=== PATIENT | male | born 1940 | race Caucasian/White ===

== ENCOUNTER → 2016-06-09 | Outpatient (CLI) | payer MEDICARE ==
[~2016-06-09] MED LIST: ALLOPURINOL300 MG PO; AMARYL PO; CETIRIZINE HCL10 MG PO; CINNAMON ALPHA1 EACH PO; COUMADIN7.5 MG PO; CYANOCOBALAM1000 MCG PO; GABAPENTIN300 M2 PO; GABAPENTIN400 M2 PO; HYDROCODON-ACE1 EAC9 PO; LIPITOR PO; LISINOPRIL5 MG PO; LOSARTAN POTASS50 MG PO; METFORMIN PO; NOVOLOG100 U/M2; NOVOLOG100 U/M2 SUBQ; TOUJEO SOL300 UNIT/1; TOUJEO SOL300 UNIT/1 SUBQ; TYLENOL325 M1 PO; VOLTAREN75 MG PO; [UNRECOGNIZED DRUG - OTHER] PO
--- NOTE | ~2016-06-09 | CO ---
Unit #: [id number] #: [id number] Patient: NOELLE GRAY [id number] [address] [address] [id number] MR#: [id number] NAME: NOELLE GRAY ROOM: Age: 75 Sex: M Admission Date: 06/09/2016 : 1940 Attending Physician: Rolando Chu M.D. Primary Care Physician: Winter White M.D. Consultation Date: 06/09/2016 CONSULTATION REPORT REASON FOR CONSULTATION Preoperative medical evaluation prior to right total knee arthroplasty scheduled by Dr. Chu for 06/23/2016. HISTORY OF PRESENT ILLNESS The patient is a 75-year-old male, who presents to preprocedural screening for the reason as indicated above. He has no complaints today with exception of right knee pain. He denies history of myocardial infarction, congestive heart failure, CVA, TIA, kidney disease. He is a type 2 diabetic on insulin. He denies upper back, arm, neck, or jaw pain and pressure. Denies shortness of air, dyspnea on exertion, or paroxysmal nocturnal dyspnea. He does have a history of sleep apnea, but does not use CPAP. Denies lightheadedness, dizziness, presyncope, syncope, or palpitations. He has been evaluated by Dr. Chu and scheduled for the above-referenced procedure. PAST MEDICAL HISTORY 1. Osteoarthritis. 2. Type 2 diabetes mellitus, on insulin. 3. Obstructive sleep apnea, noncompliant with CPAP. 4. Gout. 5. Hypertension. 6. Aortic stenosis. 7. Hyperlipidemia. 8. B12 deficiency. 9. Allergic rhinitis. 10. Obesity, BMI 37. 11. History of back injury. 12. History of skin cancer. 13. History of bilateral lower extremity neuropathy. PAST SURGICAL HISTORY 1. Abdominal hernia repair x2. 2. Cholecystectomy. 3. Left total knee arthroplasty. 4. Colonoscopy with polyp excision. 5. Negative for malignancy per the patient report. Please note, the patient denies a personal and family history of complications to anesthesia. ALLERGIES Denies latex allergy. No known drug allergies. CURRENT MEDICATIONS Unit #: [id number] #: [id number] Patient: NOELLE GRAY Glucophage 1000 mg p.o. b.i.d., allopurinol 300 mg p.o. every morning, Lipitor 10 mg p.o. every morning, Tylenol 325 mg p.o. at bedtime, cyanocobalamin 1000 mcg p.o. at bedtime, Cetirizine HCL 10 mg p.o. daily p.r.n. allergies, Epanova daily a study drug (fish oil/[place] 3), NovoLog (insulin aspart 25 units t.i.d. and adjust sliding scale according to blood sugar), Toujeo SoloSTAR 70 units in the evening and adjust according to blood sugar, gabapentin 400 mg p.o. t.i.d., losartan potassium 50 mg p.o. daily, Amaryl 4 mg p.o. at bedtime, Cinnamon alpha-lipoic acid cap one p.o. daily. SOCIAL HISTORY The patient consumes 2 beers weekly. Denies tobacco use or illicit drug use. Remote history of 2 tobacco use. He is a and served 3 tours in [employer]. FAMILY HISTORY Per review of Dr. Chu's office note, mother had cancer. REVIEW OF SYSTEMS The patient reports chronic decreased range of motion in both shoulders. Complains of right knee pain. A 10-point review of systems is conducted and otherwise negative except as indicated under history of present illness above. PHYSICAL EXAMINATION GENERAL: A 75-year-old male, awake, alert, in no acute distress. VITAL SIGNS: Heart rate 81, respiratory rate 16, blood pressure 142/83. HEENT: Atraumatic and normocephalic. Sclerae anicteric. No discharge from eyes, ears, or nares. LYMPH: No preauricular, postauricular, tonsillar, submental, anterior, or posterior cervical supra or infraclavicular adenopathy. ENDOCRINE: No thyromegaly, thyroid nodules, or tenderness. RESPIRATORY: Clear to auscultation in all suazo bilaterally without wheezes, rhonchi, or rales. CARDIOVASCULAR: S1, S2. Regular rate and rhythm without murmur or rub. GI: Bowel sounds are positive x4. Soft, nontender, nondistended. EXTREMITIES: Bilateral lower extremities, venous stasis changes, 2+ bilateral lower extremity edema without cyanosis or clubbing. NEUROLOGIC: Alert and oriented x3. Speech clear. Follows commands. Strength 5/5 in all extremities bilaterally to flexion extension. DIAGNOSTIC STUDIES LABORATORY RESULTS: WBC 7.7, hemoglobin 13.0, hematocrit 38.5, platelet count 134,000. Sodium 140, potassium 3.9, chloride 107, CO2 of 23, glucose 87, BUN 33, creatinine 1.2, calcium 9.8. AST 25, ALT 19, alkaline phos 61, bilirubin total 0.8, total protein 7.5, albumin 4.5. PT 11.0. INR 1.0. Hemoglobin A1c 7.9. Urinalysis negative with neither microscopic nor culture indicated. Blood type A positive, antibody screen negative. IMAGING STUDIES: Two-view chest x-ray, date of study 02/06/2016, conclusion, no active cardiopulmonary disease. CARDIOVASCULAR STUDIES: 12-lead EKG, 02/10/2016, sinus rhythm with occasional PVCs, otherwise normal ECG confirmed by Dr. Guidry on 02/10/2016. Please note, the patient tells me that he had a cardiac workup since I saw him in January, which included a stress test and from Unit #: [id number] #: [id number] Patient: NOELLE GRAY his description 2D echocardiogram. However, I do not see any records in this regard on the chart, I will request those records. The patient told he has aortic stenosis and no further workup is planned at this time. IMPRESSION The patient is a 75-year-old male, who presents to preprocedural screening for; 1. Preoperative medical evaluation prior to right total knee arthroplasty scheduled by Dr. Chu for 06/23/2016. The patient's Maxwell revised cardiac risk index is equal to 1.0% and this represents the patient's perioperative risk of cardiac , fatal or nonfatal myocardial infarction, cardiopulmonary arrest, arrhythmia and/or pulmonary edema. The patient's 1% risk is due to insulin-dependent diabetes mellitus. This has been discussed with the patient in detail and he wishes to proceed with surgery as scheduled at this time. 2. Type 2 diabetes mellitus, insulin dependent. The patient will follow anesthesia guidelines for preoperative medications including insulin. We will monitor Accu-Cheks, place on sliding scale insulin protocol, and resume all home medications. Pending confirmation of adequate oral intake postoperatively. 3. Obstructive sleep apnea. The patient is not compliant with CPAP. We will place on obstructive sleep apnea protocol postoperatively. 4. Gout. Continue allopurinol. 5. Hypertension. Blood pressure is stable. Monitor blood pressure postoperatively and adjust medications accordingly. 6. History of aortic stenosis. The patient is completely asymptomatic and clinically stable at this time. I will request records for review regarding preop cardiac workup as recommended by me after I saw him for preoperative medical evaluation in 01/2016. 7. Hyperlipidemia. Continue statin, although I recommend that the Lipitor will be changed to the evening instead of the morning. 8. B12 deficiency. Continue cyanocobalamin. 9. Allergic rhinitis, stable. 10. Obesity, body mass index 37. Weight loss to recommended BMI suggested. 11. Osteoarthritis. 12. History of back injury. 13. History of skin cancer. 14. History of bilateral lower extremity neuropathy, stable on Neurontin. Thank you for allowing us to participate in the care of this patient. We will gladly follow him for postop medical management. MRSA screen and review of cardiac reports are pending at this time. Dictated by... Jacquelyn Patino A.P.R.N. for Perez Moralez/kailash TD: 06/10/2016 02:39 JOB #: [id number] Unit #: [id number] #: [id number] Patient: NOELLE GRAY CONSULTATION REPORT Page 1 of 1 X Jacquelyn Patino APRN X CONSULTATION REPORT
[2016-06-09 08:35] LABS: HEMATOCRIT 38.7 % (38.0-50.0); MEAN CELL VOLUME 87.5 FL (83-96); MEAN CORPUSCULAR HEMOGLOBIN 29.3 PG (28-34); MEAN CORPUSCULAR HGB CONC 33.5 g/dL (30-36); MEAN PLATELET VOLUME 7.3 FL (6.5-11.5); RED BLOOD COUNT 4.42 X10e (3.90-5.60); RED CELL DISTRIBUTION WIDTH 14.5 % (11.0-15.5); WHITE BLOOD COUNT 7.7 X10e3 (4.0-10.5)
[2016-06-09 08:36] LABS: URINE APPEARANCE CLEAR; URINE BILIRUBIN NEG (NEG); URINE BLOOD NEG (NEG); URINE COLOR YELLOW; URINE GLUCOSE NEG (NEG); URINE KETONE NEG (NEG); URINE LEUKOCYTE ESTERASE NEG (NEG); URINE NITRATE NEG (NEG); URINE PROTEIN NEG (NEG); URINE SPECIFIC GRAVITY 1.015 (1.003-1.035)
[2016-06-09 08:43] LABS: CULTURE INDICATED? NO
[2016-06-09 09:14] LABS: ALBUMIN SERUM 4.5 g/dL (3.5-5.0); BILIRUBIN,TOTAL 0.8 mg/dL (0.2-2.0); BUN/CREATININE RATIO 27.5; CALCIUM SERUM 9.8 mg/dL (8.4-10.2); CREATININE SERUM 1.2 mg/dL (0.6-1.4); GLOM FILT RATE Estimated 58.8 mL/min (>60); POTASSIUM 3.9 mmol/L (3.5-5.1); PROTEIN TOTAL SERUM 7.5 g/dL (6.0-8.3)
== END | disposition home or self-care (01) ==
LOC: CAMB 07:56
PROVIDERS: Orthopaedic Surgery
DX: Z01.812 Encounter for preprocedural laboratory examination (principal); M17.11 Unilateral primary osteoarthritis, right knee
CPT/HCPCS: 36415; 80053; 81003; 83036; 85027; 85610; 86850; 86900; 86901; 87070

== ENCOUNTER 2016-06-23 06:14 | Inpatient (IN) | payer MEDICARE ==
--- NOTE | ~2016-06-23 | OR ---
Unit #: [id number] #: [id number] Patient: NOELLE GRAY [id number] [address] [place], [place] [address] [id number] MR#: [id number] NAME: NOELLE GRAY ROOM: [facility] Date of Procedure: 06/23/2016 Admission Date: 06/23/2016 Surgeon: Rolando Chu M.D. : 1940 Attending Physician: Rolando Chu M.D. Primary Care Physician: Winter White M.D. OPERATIVE REPORT PREOPERATIVE DIAGNOSIS Primary localized osteoarthritis of the right knee. POSTOPERATIVE DIAGNOSIS Primary localized osteoarthritis of the right knee. PROCEDURE PERFORMED Right total knee. ASSISTANTS Noa Bowman and Raffy Contreras. ANESTHESIA Adductor canal block plus general. ESTIMATED BLOOD LOSS 100 mL. INDICATIONS FOR PROCEDURE This is a 75-year-old with severe pain in his right knee. He has had pain for months. It has gotten progressively worse. He has tried injections and anti-inflammatories with no relief of the discomfort. His x-rays showed that he has evit-vy-fobk with subchondral sclerosis and periarticular osteophytes. The pain limits his walking, standing, and other daily activities including interrupting his sleep. He is brought to the hospital today for right total knee. DESCRIPTION OF PROCEDURE The patient was brought to the holding room, given an adductor canal block. He was also given 2 g of Ancef that will be continued postop, but discontinued within 23 hours from the start time of surgery. He was then given a general anesthetic. Tourniquet placed around the right thigh. The right leg was prepped and draped in a sterile fashion. Tourniquet was inflated to 250. A straight anterior skin incision was made. The subcutaneous dissected away and a medial arthrotomy was performed. Patella was slid to the side. Osteophytes removed from the femur. The intramedullary guide was used and a 6-degree valgus cut was made on the distal femur. The femur was sized and found to be a size 3. The anterior-posterior cutting block was applied. Rotation was checked in the knee. Anterior and posterior cuts were made along with the chamfer cuts. Proximal tibial cut was made using a 0-degree cutting block. It was sized at 2.5. Any posterior condylar osteophytes were removed. The knee was Unit #: [id number] #: [id number] Patient: NOELLE GRAY injected with ropivacaine mixture and the posterior capsule and the periosteum. The patient then had the trial femur applied. The drill holes were made for lugs on the femoral component. Trial tibia was applied. This was 8 mm thick. The knee came to full extension and good stability in extension and flexion. Rotation of the tibia was marked and the external alignment guide showed appropriate alignment of the limb. The patella was grasped with 2 towel clips, measured 25 mm thick, cut smooth at 14 and a 38 patella was the appropriate size. The 3 drill holes were made. Trial patella applied and it tracked properly. We then removed all the trials. The knee was irrigated and dried while the cement was mixed. Then, all 3 components were cemented simultaneously. Once again, it was a size 3 femur, size 2.5 tibia, all poly 8 mm thick, and a 38 patella from the De[employer] P[employer] Sigma knee system. Any excess cement was removed and then the knee was irrigated and the rest of the ropivacaine mixture was injected. The tourniquet was released. Hemostasis was obtained. The wound irrigated with Betadine and bacitracin and then closed using 0 Ethibond in the arthrotomy, 0 and 2-0 Vicryl in the subcutaneous, and kelton in the skin. television production assistant, Noa Bowman was present throughout the entire case. Dictated by... Perez Rosas/kailash TD: 06/24/2016 02:39 JOB #: [id number] OPERATIVE REPORT Page 1 of 1 X Rolando Chu MD PROCEDURE OPERATIVE NOTE
--- NOTE | ~2016-06-23 | BMI ---
[facility] Nutrition Therapy DATE: 06/25/16 Patient: NOELLE GRAY Physician: ONEIL Address: [address] Room/Bed: [address] [place] [address], Zip: [place] [address] Admit Date: 06/23/16 Date of : [birth year] Height: 5 7 Weight: 271 123 HIGH BMI NOTE: ANTHROPOMETRICS: HT: 67" WT: 123 KG BMI: 42.5 INTERVENTION: 1. CONSISTENT CARBOHYDRATE DIET RECOMMENDATIONS: 1. ADD HEART HEALTHY DIET RESTRICTION IN ORDER TO PROMOTE GRADUAL WEIGHT LOSS. Respectfully, KEEGAN BURNS RD, LD [employer] and [employer] [facility] cc: client file
--- NOTE | ~2016-06-23 | DS ---
Unit #: [id number] #: [id number] Patient: NOELLE JACKSNO [id number] [address] [address] [id number] I MR#: [id number] NAME: NOELLE JACKSON ROOM: 449 Age: 75 Sex: M Admission Date: 06/23/2016 : 1940 Discharge Date: 06/26/2016 Attending Physician: Rolando Chu M.D. Primary Care Physician: Winter White M.D. DISCHARGE SUMMARY ADMITTING DIAGNOSIS Right knee osteoarthritis. DISCHARGE DIAGNOSIS Right knee osteoarthritis. HOSPITAL COURSE On 06/23/2016 Mr. Jackson underwent a right total knee arthroplasty. He tolerated the procedure well. He was transported to the fourth floor where he underwent physical therapy, medical management and anticoagulation therapy. He is doing well and is ready to be discharged. CONDITION UPON DISCHARGE Stable. DISPOSITION Discharge home with [facility] health to follow. MEDICATIONS Medications on discharge include his routine home meds, in addition to [place] 10/325 and Coumadin 7.5 mg p.o. daily. FOLLOWUP AND INSTRUCTIONS 1. Mr. Jackson is going to be discharged home. 2. The patient is on Coumadin for DVT prophylaxis. PT/INR is to be drawn every Thursday and . Call the results to [phone], attention Mar. 3. Skin kelton are to be discontinued 2 weeks postop. Please apply Steri-Strips 1/4 of an inch apart. 4. White KARLOS hose are to be worn during the day and can be removed in the evening. 5. The patient can shower in [address] after seen by Dr. Chu after his 6 week postop appointment. 6. Physical therapy is to be done for active range of motion, strengthening and progressive ambulation. 7. The patient is on a walker for 4 weeks and a cane for an additional 2 weeks. 8. Followup appointment with Dr. Chu is in 6 weeks. Please call our office for that appointment date and time. Dictated by... Ron DiazASofiaCSofia for Rolando Chu M.D. Unit #: [id number] #: [id number] Patient: NOELLE JACKSON LUZ/tatyana TD: 06/27/2016 10:35 JOB #: [id number] DISCHARGE SUMMARY Page 1 of 1 X Noa Bowman DISCHARGE SUMMARY
[~2016-06-23 06:14] MED LIST changes: -CETIRIZINE HCL10 MG PO; -COUMADIN7.5 MG PO; -HYDROCODON-ACE1 EAC9 PO; -[UNRECOGNIZED DRUG - OTHER] PO
[2016-06-23 08:02] LABS: INR 1.1; PROTHROMBIN TIME (PATIENT) 11.4 SECONDS (9.6-11.5)
[2016-06-23] MEDS ORDERED: CETIRIZINE HCL10 MG PO (13:19)
[2016-06-23] MEDS ORDERED: [UNRECOGNIZED DRUG - OTHER] PO (13:23)
[2016-06-24 02:55] LABS: HEMATOCRIT 30.8 % (38.0-50.0); HEMOGLOBIN 10.1 gm/dL (13.0-16.0)
[2016-06-24 03:06] LABS: INR 1.4; PROTHROMBIN TIME (PATIENT) 14.4 SECONDS (9.6-11.5)
[2016-06-24 03:17] LABS: CALCIUM SERUM 8.6 mg/dL (8.4-10.2); CREATININE SERUM 1.3 mg/dL (0.6-1.4); GLOM FILT RATE Estimated 53.4 mL/min (>60); MAGNESIUM 1.5 mg/dL (1.6-3.0); POTASSIUM 5.2 mmol/L (3.5-5.1)
[2016-06-25 03:42] LABS: HEMATOCRIT 27.1 % (38.0-50.0); HEMOGLOBIN 9.1 gm/dL (13.0-16.0)
[2016-06-25 03:52] LABS: INR 1.6; PROTHROMBIN TIME (PATIENT) 16.9 SECONDS (9.6-11.5)
[2016-06-25 04:06] LABS: CALCIUM SERUM 8.7 mg/dL (8.4-10.2); CREATININE SERUM 1.5 mg/dL (0.6-1.4); GLOM FILT RATE Estimated 44.9 mL/min (>60); MAGNESIUM 2.1 mg/dL (1.6-3.0); POTASSIUM 5.1 mmol/L (3.5-5.1)
[2016-06-26 03:27] LABS: INR 1.7; PROTHROMBIN TIME (PATIENT) 18.7 SECONDS (9.6-11.5)
[2016-06-26 03:39] LABS: BUN/CREATININE RATIO 32.14; CALCIUM SERUM 8.5 mg/dL (8.4-10.2); CREATININE SERUM 1.4 mg/dL (0.6-1.4); GLOM FILT RATE Estimated 48.8 mL/min (>60); MAGNESIUM 2.3 mg/dL (1.6-3.0); POTASSIUM 4.8 mmol/L (3.5-5.1)
[2016-06-26] MEDS ORDERED: HYDROCODON-ACE1 EAC9 PO (08:46)
[2016-06-26] MEDS ORDERED: COUMADIN7.5 MG PO (08:49)
== END 2016-06-26 12:45 | disposition home health service (06) | DRG 470 ==
LOC: CSUR 06:14 → CPACUOF 08:11 → C4B 10:42
PROVIDERS: Nurse Practitioner; Orthopaedic Surgery; Physician Assistant
PROC: 0SRC0J9 Replacement of Right Knee Joint with Synthetic Substitute, Cemented, Open Approach (ICD-10-PCS; principal; 2016-06-23 08:00)
DX: M17.11 Unilateral primary osteoarthritis, right knee (principal); E11.9 Type 2 diabetes mellitus without complications; E87.5 Hyperkalemia; D62 Acute posthemorrhagic anemia; I10 Essential (primary) hypertension; Z96.652 Presence of left artificial knee joint; Z90.49 Acquired absence of other specified parts of digestive tract; Z85.828 Personal history of other malignant neoplasm of skin; G47.33 Obstructive sleep apnea (adult) (pediatric); M10.9 Gout, unspecified; Z79.84 Long term (current) use of oral hypoglycemic drugs; E53.8 Deficiency of other specified B group vitamins; E66.9 Obesity, unspecified; Z68.37 Body mass index [BMI] 37.0-37.9, adult; M19.90 Unspecified osteoarthritis, unspecified site; E83.42 Hypomagnesemia; R73.9 Hyperglycemia, unspecified
CPT/HCPCS: 80048; 82947; 83735; 84132; 85014; 85018; 85610; 94010; 94760; 97110; 97116; 97161; C1776; G8978-GP; G8979-GP; G8980-GP; J0131; J0171; J0690; J0735; J1650; J1815; J1885; J2250; J2370; J2405; J2795; J3010; J3475